=== PATIENT | female | born 1940 | race Caucasian/White ===

== ENCOUNTER 2017-10-24 15:22 | Observation (INO) | payer MEDICAID, MEDICARE ==
[2017-10-24] MEDS ORDERED: Sodium Chloride 0.9% 1,000 ML IV ONE (16:13)
[2017-10-24] MEDS: Loperamide 2 MG Cap PO PRN ×2 (17:48→23:59)
[2017-10-24] MEDS ORDERED: Ibuprofen 600 MG Tab PO PRN (18:56)
[2017-10-24] MEDS ORDERED: Sodium Chloride 0.9% 500 ML IV ONE (18:56)
[2017-10-24] MEDS ORDERED: Ondansetron 4 MG Tab.DIS PO PRN (18:56)
[2017-10-24] MEDS ORDERED: Acetaminophen 325 MG Tab PO PRN ×2 (18:56→19:06)
[2017-10-24] MEDS ORDERED: Ondansetron 4 MG/2 ML SDV IV PRN (18:56)
[2017-10-24] MEDS ORDERED: Enoxaparin 30 MG/0.3 ML Syringe SUBCUT SCH (19:00)
[2017-10-24] MEDS: Sodium Chloride 0.9% 1,000 ML IV SCH ×2 (19:40→20:10)
[2017-10-24] MEDS ORDERED: Aspirin/Dipyridamole 200-25 MG Cap.ER PO SCH (21:00)
[2017-10-24] MEDS ORDERED: DULoxetine 30 MG Cap PO SCH (21:00)
[2017-10-24] MEDS ORDERED: Gabapentin 300 MG Cap PO SCH (21:00)
[2017-10-24] MEDS ORDERED: Non-Formulary Medication 1 Each (Simvastatin [Zocor] 80 MG) PO SCH (21:00)
[2017-10-24] MEDS ORDERED: INSULIN DETEMIR 20 UNIT SQ SCH (21:00)
[2017-10-25] MEDS: Sodium Chloride 0.9% 1,000 ML IV SCH (04:09)
[2017-10-25] MEDS ORDERED: INSULIN DETEMIR 36 UNIT SQ SCH (06:00)
[2017-10-25] MEDS ORDERED: Levothyroxine 50 MCG Tab PO SCH (06:00)
[2017-10-25] MEDS ORDERED: INSULIN ASPART 6 UNIT SQ SCH (08:00)
--- NOTE | 2017-10-25 08:55 | ER ---
DATE SEEN: 10/24/2017 TIME SEEN: The patient was seen at 1545 hours. HISTORY OF PRESENT ILLNESS: This is a 77-year-old woman, who lives with her daughter in [place], has come north to stay with another daughter in the [facility]. She is noted to have seen Dr. Pereyra today, who sent her over to the hospital because she had diarrhea for the last two days, about 3 to 4 times per day. She feels weak and she was told, "he was going to admit me." She has dementia, obesity, 2 myocardial infarctions, CVAs and TIAs history of intermittent falling, and COPD. She is a [id number] smoker. She stopped smoking in 1975. Two days ago on the , she had a meal with an [place] woman, who is a friend, Summer, and it wasn't until last night she started having diarrhea after eating "5-meat pizza" in the evening. After the yesterday's pizza she had diarrhea 3 to 4 times and 3 to 4 times today and feels weak. Today, this late afternoon, berfore coming to the ED, she had half a cheese sandwich and has not had any diarrhea since she has been in the emergency room. Yesterday, she was started on Levaquin for a possible urinary tract infection. She had 100.8 temperature today in the ER. REVIEW OF SYSTEMS: CONSTITUTIONAL: She is easily confused. She is a fair historian. She has had COPD with cough and shortness of breath occasionally. Hypertension is treated; dyslipidemia and depression, treated; heart failure and hypothyroidism, treated. HEENT: Vision is good. She wears glasses. Hearing is slightly decreased, but present. No difficulty swallowing. LUNGS: No shortness of breath or new cough. ABDOMEN: No abdominal discomfort, but the diarrhea is noted. No blood in her stools. No reflux. : She does wear Attends, has incontinence. EXTREMITIES: Mildly weak, but more weak today than usual. NEUROLOGIC: As noted above, CVA and TIAs. PSYCH: Depression. ENDOCRINE: Dyslipidemia and diabetes. CURRENT MEDICATIONS: 1. Gabapentin for pain 300 mg at bedtime. 2. Lasix 20 mg daily (congestive heart failure). 3. Duloxetine 30 mg b.i.d. (depression). 4. Citalopram 40 mg daily. 5. Aspirin-dipyridamole (Aggrenox) dual platelet inhibitor. 6. Zocor 80 mg at bedtime. 7. Vitamin D. 8. Metoprolol succinate 25 mg daily (hypertension). 9. Losartan potassium 50 mg daily. 10.Levothyroxine (hypothyroidism) 50 mcg daily. 11.Detemir 20 units long-acting at bedtime and 36 units in the morning. 12.NovoLog 6 units with meals. 13.Tylenol p.r.n. ALLERGIES: Sulfa. PHYSICAL EXAMINATION: VITAL SIGNS: Are not on the chart as of yet. No tachycardia. GENERAL: Alert woman, who speaks slowly and processes are diminished this morning. She is overweight. In mild distress. HEENT: She denies headache or compromise in vision. Pharynx without abnormality. Mild dry mucosa. PERRLA intact. TMs are negative. Hearing intact. NECK: No bruits. No thyromegaly. Trace tracheal tug. No tracheal deviation. LUNGS: Clear without rales or rhonchi. HEART: S1 and S2. No irregular rate or rhythm. No murmur. ABDOMEN: Soft. No guarding. No rebound. There is mild abdominal discomfort. Bowel sounds are slightly increased. No CVA percussion tenderness. No spinous process tenderness. PELVIC: Not performed. EXTREMITIES: Lower extremities without tenderness or pain. She has no pedal edema. Dorsalis pedis is intact. Radial pulses are slightly irregular. LABORATORY FINDINGS: White count 10,200, normal; hemoglobin 13.3, normal differential; PMNs 77; lymphocytes 14; monos 6; and platelets 267,000. Electrolytes normal. Sodium 140, potassium 3.9, chloride 104, bicarb 27, BUN 17, creatinine trace elevated at 1.7, GFR 36, BUN and creatinine ratio 12, and glucose 66. Protein, alkaline phosphatase, and liver enzymes are normal. EMERGENCY ROOM COURSE: The patient has flushed with IV fluid. 1000 mL of normal saline. She is feeling better. Up to the bathroom. Not as weak as she was before. Troponin was obtained. BNP was obtained. Results are pending. Lactic acid is pending. Blood cultures are obtained. ASSESSMENT: 1. The patient has enteritis, probably result of the 5-meat pizza eaten last night. After that, she had diarrhea. 2. Weakness. 3. Obesity. 4. Status post myocardial infarction x2. 5. CVAs and transient ischemic attacks. 6. Chronic obstructive pulmonary disease, status post [id number] smoker. 7. Hypertension, treated, stable. 8. Diabetes. 9. Polio at age 6. 10.Congestive heart failure, stable. 11.Coronary artery disease, stable. 12.Cholelithiasis. 13.Depression. 14.Status post appendectomy, hysterectomy, cholecystectomy, and bilateral TKAs. PLAN: The patient is and is living with her daughter in [place], and has come up to visit here in the [facility], another daughter. The patient is going back to [place] in the next 3 days. Presently, her status has improved after IV therapy. Dismissed to follow up with doctor regine tomorrow and if worse, otherwise as needed in the next 3 days before she goes back to [place]. /[id number] KARSON FORD
[2017-10-25] MEDS ORDERED: Metoprolol Succinate 25 MG Tab.ER PO SCH (09:00)
[2017-10-25] MEDS ORDERED: Furosemide 40 MG Tab PO SCH (09:00)
[2017-10-25] MEDS ORDERED: Losartan 50 MG Tab PO SCH (09:00)
[2017-10-25] MEDS ORDERED: Multivitamin Tab PO SCH (09:00)
--- NOTE | 2017-10-25 11:03 | ER ---
DATE SEEN: 10/24/2017 ADDENDUM: Simón's status is changed. We are not planning to send her home. She has persistent diarrhea in the emergency room. Her other laboratory work is back. Troponin is 0.017. BNP is 1993. No evidence for myocardial infarction. She had an EKG that demonstrates PVCs, quadrigeminy, bradycardia at the rate of 56, and sinus rhythm. The patient's TSH was 2.96. ASSESSMENT: The patient had persistent diarrhea that has relented with medication use, Imodium, in the ER. PLAN: Hydrate with IV fluids and follow her BMP. Presently, no evidence for congestive heart failure in spite of the fact that she has had 6 L of fluids already and she will be receiving 500 mL more followed by 200 mL an hour. The patient will be to followed closely and get a BMP in the morning and complete metabolic panel in the morning. /[id number] LILIAM/JULIETH
--- NOTE | 2017-10-25 13:00 | PCM.HP ---
H&P History of Present Illness - General Date of Service: 10/25/17 Admit Problem/Dx: Diarrhea. Source of Information: Patient, Family, Old Records, Provider History Limitations: Reports: Altered Mental Status - History of Present Illness Initial Comments - Free Text/Narative: Chief complaint: Diarrhea History of present illness: Patient is a 77-year-old female who lives in [place]. She has mild to moderate dementia and lives with a daughter there and came to see daughters who live here in this area on 20 October. For about 2 days should been having watery loose stools 3-4 times per day and they gradually were growing more frequent so she was brought into the emergency department on the evening of 10/25/17 and given IV fluids. She was observed for a few hours overnight and ultimately the emergency room physician felt she should be admitted for further observation. She had a number of loose stools in the emergency room but has had none since she reached the floor. She is no longer having any diarrhea. She had breakfast and had no loose stools with this. She's had no nausea, no vomiting, no abdominal pain. She's had no chest pain or shortness of breath. She had no fevers or chills with this. No blood in her stool or black or tarry stools. She doesn't recall any blood in her urine or any discomfort with going to the bathroom other than the cramping when she had the loose stools. Family is not aware that she's been taking any antibiotics. Past Medical Hx: #1 dementia #2 obesity #3 history of myocardial infarction 2 in the remote past #4 History of CVA/TIA. Home medications and allergies reviewed below. Social history: Patient quit smoking in 1975. Denies alcohol use. Is here visiting 2 daughters and plans to return to [place] at the end of the week. Family history: Noncontributory Review of systems: As per history of present illness. Otherwise negative. However limited by the fact that the patient has dementia. - Related Data Allergies/Adverse Reactions: Allergies Allergy/AdvReac Type Severity Reaction Status Date / Time Sulfa (Sulfonamide Allergy Swelling Verified 10/24/17 17:08 Antibiotics) Home Medications: Home Meds Aspirin/Dipyridamole [Aggrenox 200-25 MG] 1 tab PO BID 11/23/13 [History] Citalopram [Citalopram HBr] 40 mg PO DAILY 11/23/13 [History] Gabapentin 300 mg PO BEDTIME 11/23/13 [History] Losartan Potassium 50 mg PO DAILY 11/23/13 [History] Metoprolol Succinate 25 mg PO DAILY 11/23/13 [History] Multivitamin [Daily Multiple Vitamin] 1 tab PO DAILY 03/08/15 [History] DULoxetine [Cymbalta] 30 mg PO BID cap 03/14/15 [Rx] Acetaminophen [Tylenol] 650 mg PO Q4H PRN #0 tablet 01/23/16 [Rx] Insulin Aspart [NovoLOG] 6 units SQ TIDMEALS #1 pen 01/23/16 [Rx] Insulin Detemir [Levemir] 20 units SQ BEDTIME #1 pen 01/23/16 [Rx] Insulin Detemir [Levemir] 36 units SQ QAM #1 pen 01/23/16 [Rx] Levothyroxine [Synthroid] 50 mcg PO 0600 tablet 01/23/16 [Rx] Simvastatin [Zocor] 80 mg PO BEDTIME tablet 01/23/16 [Rx] Cephalexin [Keflex] 500 mg PO TID 7 Days #21 capsule 10/25/17 [Rx] Past Medical History - Past Health History Medical/Surgical History: Denies Medical/Surgical History Other HEENT History: wears glasses Cardiovascular History: Reports: IA Other Cardiovascular History: States she has had three IA's. Respiratory History: Reports: Asthma Other OB/BYN History: hysterectomy Other Musculoskeletal History: States she had polio at age 6 years, required iron lung, then had to learn to walk again. Other Neuro History: States she has had three strokes in the past. Occas TIAs which gives her left sided facial numbness. Endocrine/Metabolic History: Reports: Diabetes, Type I - Past Surgical History GI Surgical History: Reports: Colonoscopy, EGD Musculoskeletal Surgical History: Reports: Other (See Below) Other Musculoskeletal Surgeries/Procedures:: Broke right arm Social & Family History - Family History Family Medical History: Noncontributory - Tobacco Use Smoking Status *Q: Former Smoker Used Tobacco, but Quit: Yes Month/Year Tobacco Last Used: 2013 Second Hand Smoke Exposure: No - Caffeine Use Caffeine Use: Reports: Coffee, Tea Other Caffeine Use: 3 cups per day - Recreational Drug Use Recreational Drug Use: No - Living Situation & Occupation Living situation: Reports: H&P Review of Systems - Review of Systems: Review Of Systems: ROS reveals no pertinent complaints other than HPI. Exam - Exam Exam: See Below - Vital Signs Vital Signs: Last Vital Signs Temp 37.3 C 10/25/17 04:00 Pulse 57 L 10/25/17 04:00 Resp 18 10/25/17 04:00 BP 128/62 10/25/17 04:00 Pulse Ox 94 L 10/25/17 04:00 Weight: 89.766 kg - Exam General: Alert, Oriented, Cooperative HEENT: PERRLA, Conjunctiva Clear, Mucosa Moist & [place], Posterior Pharynx Clear Neck: Supple, Trachea Midline Lungs: Clear to Auscultation, Normal Respiratory Effort Cardiovascular: Regular Rate, Regular Rhythm, Normal S1, Normal S2 GI/Abdominal Exam: Normal Bowel Sounds, Soft, Non-Tender, No Distention Back Exam: Normal Inspection, Full Range of Motion Extremities: Normal Inspection, No Pedal Edema Neuro Extensive - Mental Status: Alert, Normal Mood/Affect Psychiatric: Alert - Patient Data Lab Results Last 24 hrs: Laboratory Results - last 24 hr 10/24/17 10/24/17 10/24/17 Range/Units 16:17 16:20 16:20 WBC 10.2 (4.5-12.0) X10-3/uL RBC 4.39 (3.23-5.20) x10(6)uL Hgb 13.3 (11.5-15.5) g/dL Hct 40.9 (30.0-51.3) % MCV 93.0 (80-96) fL MCH 30.3 (27.7-33.6) pg MCHC 32.5 (32.2-35.4) g/dL RDW 11.9 (11.5-15.5) % Plt Count 267 (125-369) X10(3)uL MPV 8.7 (7.4-10.4) fL Neut % (Auto) 77.0 (46-82) % Lymph % (Auto) 14.2 (13-37) % [place] % (Auto) 6.3 (4-12) % Eos % (Auto) 2 (1.0-5.0) % Baso % (Auto) 0 (0-2) % Neut # (Auto) 7.9 (1.6-8.3) # Lymph # (Auto) 1.4 (0.6-5.0) # [place] # (Auto) 0.6 (0.0-1.3) # Eos # (Auto) 0.2 (0.0-0.8) # Baso # (Auto) 0.0 (0.0-0.2) # Sodium 140 (135-145) mmol/L Potassium 3.9 (3.5-5.3) mmol/L Chloride 104 (100-110) mmol/L Carbon Dioxide 27 (21-32) mmol/L BUN 17 (7-18) mg/dL Creatinine 1.4 H (0.55-1.02) mg/dL Est Cr Clr Drug Dosing 28.60 mL/min Estimated GFR (MDRD) 36 L (>60) BUN/Creatinine Ratio 12.1 (9-20) Glucose 67 L (80-116) mg/dL POC Glucose 66 L D (80-116) mg/dL Lactic Acid (0.4-2.2) mmol/L Calcium 9.1 (8.6-10.2) mg/dL Phosphorus (2.6-4.6) mg/dL Magnesium (1.8-2.5) mg/dL Total Bilirubin 0.4 (0.1-1.3) mg/dL AST 19 (5-25) IU/L ALT 18 (12-36) U/L Alkaline Phosphatase 65 (56-112) IU/L Troponin I (<0.017-0.056) ng/mL NT-Pro-B Natriuret Pep (<=450) pg/mL Total Protein 7.4 (6.0-8.0) g/dL Albumin 3.2 (3.2-4.6) g/dL Globulin 4.2 g/dL Albumin/Globulin Ratio 0.8 TSH, Ultra Sensitive (0.36-3.74) IU/mL Urine Color (YELLOW) Urine Appearance (CLEAR) Urine pH (5.0-6.5) Ur Specific [place] (1.010-1.025) Urine Protein (NEGATIVE) mg/dL Urine Glucose (UA) (NEGATIVE) mg/dL Urine Ketones (NEGATIVE) mg/dL Urine Occult Blood (NEGATIVE) Urine Nitrite (NEGATIVE) Urine Bilirubin (NEGATIVE) Urine Urobilinogen (NEGATIVE) mg/dL Ur Leukocyte Esterase (NEGATIVE) Urine RBC (0) Urine WBC (0) Ur Squamous Epith Cells (NS,R,O) Urine Bacteria (NS) 10/24/17 10/24/17 10/24/17 Range/Units 16:20 16:20 16:20 WBC (4.5-12.0) X10-3/uL RBC (3.23-5.20) x10(6)uL Hgb (11.5-15.5) g/dL Hct (30.0-51.3) % MCV (80-96) fL MCH (27.7-33.6) pg MCHC (32.2-35.4) g/dL RDW (11.5-15.5) % Plt Count (125-369) X10(3)uL MPV (7.4-10.4) fL Neut % (Auto) (46-82) % Lymph % (Auto) (13-37) % [place] % (Auto) (4-12) % Eos % (Auto) (1.0-5.0) % Baso % (Auto) (0-2) % Neut # (Auto) (1.6-8.3) # Lymph # (Auto) (0.6-5.0) # [place] # (Auto) (0.0-1.3) # Eos # (Auto) (0.0-0.8) # Baso # (Auto) (0.0-0.2) # Sodium (135-145) mmol/L Potassium (3.5-5.3) mmol/L Chloride (100-110) mmol/L Carbon Dioxide (21-32) mmol/L BUN (7-18) mg/dL Creatinine (0.55-1.02) mg/dL Est Cr Clr Drug Dosing mL/min Estimated GFR (MDRD) (>60) BUN/Creatinine Ratio (9-20) Glucose (80-116) mg/dL POC Glucose (80-116) mg/dL Lactic Acid 1.0 (0.4-2.2) mmol/L Calcium (8.6-10.2) mg/dL Phosphorus 3.6 (2.6-4.6) mg/dL Magnesium 1.7 L (1.8-2.5) mg/dL Total Bilirubin (0.1-1.3) mg/dL AST (5-25) IU/L ALT (12-36) U/L Alkaline Phosphatase (56-112) IU/L Troponin I < 0.017 L (<0.017-0.056) ng/mL NT-Pro-B Natriuret Pep 1993 H* (<=450) pg/mL Total Protein (6.0-8.0) g/dL Albumin (3.2-4.6) g/dL Globulin g/dL Albumin/Globulin Ratio TSH, Ultra Sensitive 2.96 (0.36-3.74) IU/mL Urine Color (YELLOW) Urine Appearance (CLEAR) Urine pH (5.0-6.5) Ur Specific [place] (1.010-1.025) Urine Protein (NEGATIVE) mg/dL Urine Glucose (UA) (NEGATIVE) mg/dL Urine Ketones (NEGATIVE) mg/dL Urine Occult Blood (NEGATIVE) Urine Nitrite (NEGATIVE) Urine Bilirubin (NEGATIVE) Urine Urobilinogen (NEGATIVE) mg/dL Ur Leukocyte Esterase (NEGATIVE) Urine RBC (0) Urine WBC (0) Ur Squamous Epith Cells (NS,R,O) Urine Bacteria (NS) 10/24/17 10/24/17 10/25/17 Range/Units 19:30 21:21 06:00 WBC (4.5-12.0) X10-3/uL RBC (3.23-5.20) x10(6)uL Hgb (11.5-15.5) g/dL Hct (30.0-51.3) % MCV (80-96) fL MCH (27.7-33.6) pg MCHC (32.2-35.4) g/dL RDW (11.5-15.5) % Plt Count (125-369) X10(3)uL MPV (7.4-10.4) fL Neut % (Auto) (46-82) % Lymph % (Auto) (13-37) % [place] % (Auto) (4-12) % Eos % (Auto) (1.0-5.0) % Baso % (Auto) (0-2) % Neut # (Auto) (1.6-8.3) # Lymph # (Auto) (0.6-5.0) # [place] # (Auto) (0.0-1.3) # Eos # (Auto) (0.0-0.8) # Baso # (Auto) (0.0-0.2) # Sodium (135-145) mmol/L Potassium (3.5-5.3) mmol/L Chloride (100-110) mmol/L Carbon Dioxide (21-32) mmol/L BUN (7-18) mg/dL Creatinine (0.55-1.02) mg/dL Est Cr Clr Drug Dosing mL/min Estimated GFR (MDRD) (>60) BUN/Creatinine Ratio (9-20) Glucose (80-116) mg/dL POC Glucose 150 H D 170 H 114 (80-116) mg/dL Lactic Acid (0.4-2.2) mmol/L Calcium (8.6-10.2) mg/dL Phosphorus (2.6-4.6) mg/dL Magnesium (1.8-2.5) mg/dL Total Bilirubin (0.1-1.3) mg/dL AST (5-25) IU/L ALT (12-36) U/L Alkaline Phosphatase (56-112) IU/L Troponin I (<0.017-0.056) ng/mL NT-Pro-B Natriuret Pep (<=450) pg/mL Total Protein (6.0-8.0) g/dL Albumin (3.2-4.6) g/dL Globulin g/dL Albumin/Globulin Ratio TSH, Ultra Sensitive (0.36-3.74) IU/mL Urine Color (YELLOW) Urine Appearance (CLEAR) Urine pH (5.0-6.5) Ur Specific [place] (1.010-1.025) Urine Protein (NEGATIVE) mg/dL Urine Glucose (UA) (NEGATIVE) mg/dL Urine Ketones (NEGATIVE) mg/dL Urine Occult Blood (NEGATIVE) Urine Nitrite (NEGATIVE) Urine Bilirubin (NEGATIVE) Urine Urobilinogen (NEGATIVE) mg/dL Ur Leukocyte Esterase (NEGATIVE) Urine RBC (0) Urine WBC (0) Ur Squamous Epith Cells (NS,R,O) Urine Bacteria (NS) 10/25/17 10/25/17 10/25/17 Range/Units 06:10 06:10 07:30 WBC (4.5-12.0) X10-3/uL RBC (3.23-5.20) x10(6)uL Hgb (11.5-15.5) g/dL Hct (30.0-51.3) % MCV (80-96) fL MCH (27.7-33.6) pg MCHC (32.2-35.4) g/dL RDW (11.5-15.5) % Plt Count (125-369) X10(3)uL MPV (7.4-10.4) fL Neut % (Auto) (46-82) % Lymph % (Auto) (13-37) % [place] % (Auto) (4-12) % Eos % (Auto) (1.0-5.0) % Baso % (Auto) (0-2) % Neut # (Auto) (1.6-8.3) # Lymph # (Auto) (0.6-5.0) # [place] # (Auto) (0.0-1.3) # Eos # (Auto) (0.0-0.8) # Baso # (Auto) (0.0-0.2) # Sodium 142 (135-145) mmol/L Potassium 3.7 (3.5-5.3) mmol/L Chloride 110 D (100-110) mmol/L Carbon Dioxide 23 (21-32) mmol/L BUN 13 (7-18) mg/dL Creatinine 1.2 H (0.55-1.02) mg/dL Est Cr Clr Drug Dosing 33.36 mL/min Estimated GFR (MDRD) 43 L (>60) BUN/Creatinine Ratio 10.8 (9-20) Glucose 112 (80-116) mg/dL POC Glucose (80-116) mg/dL Lactic Acid (0.4-2.2) mmol/L Calcium 8.0 L (8.6-10.2) mg/dL Phosphorus (2.6-4.6) mg/dL Magnesium (1.8-2.5) mg/dL Total Bilirubin 0.3 (0.1-1.3) mg/dL AST 16 D (5-25) IU/L ALT 15 D (12-36) U/L Alkaline Phosphatase 47 L (56-112) IU/L Troponin I (<0.017-0.056) ng/mL NT-Pro-B Natriuret Pep 1253 H* (<=450) pg/mL Total Protein 5.7 L (6.0-8.0) g/dL Albumin 2.4 L (3.2-4.6) g/dL Globulin 3.3 g/dL Albumin/Globulin Ratio 0.7 TSH, Ultra Sensitive (0.36-3.74) IU/mL Urine Color Yellow (YELLOW) Urine Appearance Cloudy (CLEAR) Urine pH 5.0 (5.0-6.5) Ur Specific [place] 1.015 (1.010-1.025) Urine Protein Negative (NEGATIVE) mg/dL Urine Glucose (UA) Normal (NEGATIVE) mg/dL Urine Ketones Negative (NEGATIVE) mg/dL Urine Occult Blood Negative (NEGATIVE) Urine Nitrite Positive H (NEGATIVE) Urine Bilirubin Negative (NEGATIVE) Urine Urobilinogen Normal (NEGATIVE) mg/dL Ur Leukocyte Esterase Large H (NEGATIVE) Urine RBC 5-10 (0) Urine WBC 50-75 H (0) Ur Squamous Epith Cells Occasional (NS,R,O) Urine Bacteria Many H (NS) Result Diagrams: 10/24/17 16:20 10/25/17 06:10 - Problem List (1) Diarrhea SNOMED Code(s): 59433701 ICD Code: R19.7 - DIARRHEA, UNSPECIFIED Status: Acute Current Visit: Yes Problem Details: Now resolved. Patient is in good condition and ready to discharge home. May travel as she desires. (2) UTI (urinary tract infection) SNOMED Code(s): 41452412 ICD Code: N39.0 - URINARY TRACT INFECTION, SITE NOT SPECIFIED Status: Acute Current Visit: Yes Problem Details: There was some confusion about whether or not the patient had actually been given Levaquin for this. I see no documentation in the outpatient chart that she received a prescription and the patient's family does not believe she received a prescription. The question is whether or not to treat this or if it's asymptomatic bacteriuria. I did recommend we go ahead and treat with Keflex 500 mg by mouth 3 times a day 7 days. I think this is low risk for this patient as she's had it before without problems and less likely to cause diarrhea or C. difficile. If any problems from the medication I would stop it immediately and not restart without further testing. (3) Diabetes mellitus SNOMED Code(s): 90155058 ICD Code: E11.9 - TYPE 2 DIABETES MELLITUS WITHOUT COMPLICATIONS Status: Chronic Current Visit: No Problem Details: Continue Insulin determir, insulin aspart pre-meals at prescribed doses. Qualifiers: Diabetes mellitus type: type 2 Diabetes mellitus intermediate school teacher insulin use: with snf use Diabetes mellitus complication status: without complication Qualified Code(s): E11.9 - Type 2 diabetes mellitus without complications; Z79.4 - group home (current) use of insulin (4) Hyperlipidemia SNOMED Code(s): 73793122 ICD Code: E78.5 - HYPERLIPIDEMIA, UNSPECIFIED Status: Chronic Current Visit: No Problem Details: Continue Zocor. Qualifiers: Hyperlipidemia type: pure hypercholesterolemia Qualified Code(s): E78.00 - Pure hypercholesterolemia, unspecified; E78.0 - Pure hypercholesterolemia (5) Hypertension SNOMED Code(s): 52461635 ICD Code: I10 - ESSENTIAL (PRIMARY) HYPERTENSION Status: Chronic Current Visit: No Problem Details: Continue losartan and Toprol XL. Problem List Initiated/Reviewed/Updated: Yes Orders Last 24hrs: Active Orders 24 hr Category Date Time Status Patient Status [ADT] Routine ADT 10/24/17 18:57 Active Blood Glucose Check, Bedside [RC] QIDACANDBED Care 10/24/17 18:56 Active Notify Provider Vital Signs [RC] ASDIRECTED Care 10/24/17 18:59 Active Oxygen Therapy [RC] PRN Care 10/24/17 18:57 Active Pulse Oximetry [RC] PRN Care 10/24/17 18:59 Active Ready for Discharge [RC] PER UNIT ROUTINE Care 10/25/17 12:54 Ordered VTE/DVT Education [RC] Per Unit Routine Care 10/24/17 18:57 Active Vital Signs [RC] Q4H Care 10/24/17 18:57 Active Full Liquid Diet [DIET] Diet 10/24/17 Dinner Ordered CDIFF TOXIN A+B GROUP [OP] Routine Lab 10/24/17 19:40 Ordered CULTURE BLOOD [BC] Urgent Lab 10/24/17 16:20 Received CULTURE URINE [RM] Routine Lab 10/25/17 07:30 Received UA W/MICROSCOPIC [URIN] Urgent Lab 10/25/17 07:30 Ordered Acetaminophen [Tylenol] Med 10/24/17 18:56 Active 650 mg PO Q4H PRN Acetaminophen [Tylenol] Med 10/24/17 19:06 Pending 650 mg PO Q4H PRN Aspirin/Dipyridamole [Aggrenox 200-25 MG] Med 10/24/17 21:00 Pending DOSE cap PO BID Citalopram [Celexa] Med 10/25/17 09:00 Pending 40 mg PO DAILY DULoxetine [Cymbalta] Med 10/24/17 21:00 Pending 30 mg PO BID Enoxaparin [Lovenox] Med 10/24/17 19:00 Active 30 mg SUBCUT Q24H Furosemide [Lasix] Med 10/25/17 09:00 Pending 20 mg PO DAILY Gabapentin [Neurontin] Med 10/24/17 21:00 Pending 300 mg PO BEDTIME Ibuprofen [Motrin] Med 10/24/17 18:56 Active 600 mg PO Q6H PRN Insulin Aspart [NovoLOG] Med 10/25/17 08:00 Pending 6 units SQ TIDMEALS Insulin Detemir [Levemir] Med 10/24/17 21:00 Pending 20 units SQ BEDTIME Insulin Detemir [Levemir] Med 10/25/17 06:00 Pending 36 units SQ QAM Levothyroxine [Synthroid] Med 10/25/17 06:00 Pending 50 mcg PO 0600 Loperamide [Imodium] Med 10/24/17 17:44 Active 2 mg PO Q4H PRN Losartan [Cozaar] Med 10/25/17 09:00 Pending 50 mg PO DAILY Metoprolol Succinate [Toprol XL] Med 10/25/17 09:00 Pending 25 mg PO DAILY Multivitamins [Tab-A-José] Med 10/25/17 09:00 Pending 1 tab PO DAILY Ondansetron [Zofran ODT] Med 10/24/17 18:56 Active 4 mg PO Q6H PRN Ondansetron [Zofran] Med 10/24/17 18:56 Active 4 mg IV Q4H PRN Simvastatin [Zocor] Med 10/24/17 21:00 Pending 80 mg PO BEDTIME Sodium Chloride 0.9% [Normal Saline] 1,000 ml Med 10/24/17 19:00 Active IV ASDIRECTED Blood Culture x2 Reflex Set [OM.PC] Urgent Oth 10/24/17 16:15 Ordered Resuscitation Status Routine Resus Stat 10/24/17 18:56 Ordered EKG 12 Lead [EK] Routine Ther 10/24/17 17:58 Ordered Medication Orders Acetaminophen (Tylenol) 650 mg PO Q4H PRN PRN Reason: Pain (Mild 1-3)/fever Acetaminophen (Tylenol) 650 mg PO Q4H PRN PRN Reason: Pain Citalopram Hydrobromide (Celexa) 40 mg PO DAILY [facility] Dipyridamole/Aspirin (Aggrenox 200-25 Mg) cap PO BID SA[facility]IL Duloxetine HCl (Cymbalta) 30 mg PO BID [facility] Enoxaparin Sodium (Lovenox) 30 mg SUBCUT Q24H [facility]IL Last Admin: 10/24/17 20:53 Dose: 30 mg Furosemide (Lasix) 20 mg PO DAILY [facility] Gabapentin (Neurontin) 300 mg PO BEDTIME [facility] Sodium Chloride (Normal Saline) 1,000 mls @ 200 mls/hr IV ASDIRECTED SAHIL Last Admin: 10/25/17 04:09 Dose: 200 mls/hr Infusion: 10/25/17 01:10 Dose: 200 mls/hr Admin: 10/24/17 20:10 Dose: 200 mls/hr Ibuprofen (Motrin) 600 mg PO Q6H PRN PRN Reason: Pain (mild 1-3) Levothyroxine Sodium (Synthroid) 50 mcg PO 0600 [facility] Loperamide HCl (Imodium) 2 mg PO Q4H PRN PRN Reason: Diarrhea Last Admin: 10/24/17 23:59 Dose: 2 mg Admin: 10/24/17 17:48 Dose: 2 mg Losartan Potassium (Cozaar) 50 mg PO DAILY [facility] Metoprolol Succinate (Toprol Xl) 25 mg PO DAILY [facility] Multivitamins/Minerals/Vitamin C (Tab-A-José) 1 tab PO DAILY [facility] Non-Formulary Medication (Insulin Aspart [Novolog]) 6 units SQ TIDMEALS [facility] Non-Formulary Medication (Insulin Detemir [Levemir]) 20 units SQ BEDTIME [facility] Non-Formulary Medication (Insulin Detemir [Levemir]) 36 units SQ QAM [facility] Non-Formulary Medication (Simvastatin [Zocor]) 80 mg PO BEDTIME [facility] Ondansetron HCl (Zofran Odt) 4 mg PO Q6H PRN PRN Reason: nausea, able to take PO Ondansetron HCl (Zofran) 4 mg IV Q4H PRN PRN Reason: Nausea/Vomiting Assessment/Plan Comment:: CODE STATUS: The patient was admitted as a full code but no discussion with family or patient was documented. When I discussed CODE STATUS with the patient , asking her if her heart were to stop beating or she were to stop breathing, if she would want chest compressions, electric shocks, or resuscitation to attempt to bring her body back to life, she told me she had never been asked this before and has never thought about it but doesn't think she would want that done. She feels like when it's her time, it's her time and she would want to be allowed to go peacefully. Her CODE STATUS remains full code as I don't believe she is competent to make this decision given her dementia and I didn't have the opportunity to review this with family but I would recommend that this be discussed further with family and documentation be provided with advanced healthcare directives, living will, or POLST. This would ensure that the patient 's wishes are respected. Discharge instructions: Patient discharged home with family. Follow-up with her primary care provider when she returns home. 7 days of Keflex 3 times daily for UTI.
[2017-10-25 14:29] VITALS: BP 124/70
== END 2017-10-25 16:20 | disposition home or self-care (01) ==
LOC: FB.ED 15:22 → FB.MS 18:57
PROVIDERS: ADMIT Emergency Medicine; ATTEND Family Medicine
DX: R19.7 Diarrhea, unspecified (principal); R41.82 Altered mental status, unspecified; F03.90 Unspecified dementia, unspecified severity, without behavioral disturbance, psychotic disturbance, mood disturbance, and anxiety; E66.9 Obesity, unspecified; I25.2 Old myocardial infarction; J45.909 Unspecified asthma, uncomplicated; E10.9 Type 1 diabetes mellitus without complications; A80.9 Acute poliomyelitis, unspecified; Z86.73 Personal history of transient ischemic attack (TIA), and cerebral infarction without residual deficits; Z87.891 Personal history of nicotine dependence; Z88.2 Allergy status to sulfonamides; Z79.82 Long term (current) use of aspirin; Z79.4 Long term (current) use of insulin; Z79.899 Other long term (current) drug therapy
CPT/HCPCS: 36415; 80053; 81001; 82962; 83605; 83735; 83880; 84100; 84443; 84484; 85025; 87040; 87086; 87088; 87186; 87324; 93005; 96360; 96361; 96372; 99219; 99284; 99285; A9270; G0378; J1650; J7030; J7040